=== PATIENT | female | born 2000 | race Two or more races ===

== ENCOUNTER 2023-12-29 18:41 | Inpatient (IN) | payer BC, SELFPAY ==
[2023-12-29] VITALS (12 sets, daily range): BP systolic 93–116; BP diastolic 51–70; PULSE 80–95; TEMP 36.6
[2023-12-29 19:51] LABS: Hemoglobin 11.1 g/dL (12.0-16.0); Mean Corpuscular HGB Conc 32.6 g/dL (29.9-35.2); Mean Corpuscular Hemoglobin 28.6 pg (26.7-34.0); Mean Corpuscular Volume 87.6 fL (81.0-99.0); Mean Platelet Volume 10.5 fL (9.5-13.5); Platelet Count 271 10^3/uL (150-450); Red Blood Count 3.88 10^6/uL (4.20-5.40); White Blood Count 8.6 10^3/uL (4.0-11.0)
[2023-12-29] MEDS: DINOPROSTONE 10 MG VAG INSERT.ER VAGINAL (20:04)
[2023-12-29 20:10] LABS: Amphetamine Screen Urine NEGATIVE (NEGATIVE); Barbiturates Screen Urine NEGATIVE (NEGATIVE); Benzodiazepines Screen Urine NEGATIVE (NEGATIVE); Buprenorphine Screen Urine NEGATIVE (NEGATIVE); Cannabinoid Screen Urine NEGATIVE (NEGATIVE); Cocaine Screen Urine NEGATIVE (NEGATIVE); Methadone Screen Urine NEGATIVE (NEGATIVE); Methamphetamines Screen Urine NEGATIVE (NEGATIVE); Opiate Screen Urine NEGATIVE (NEGATIVE); Oxycodone Screen Urine NEGATIVE (NEGATIVE); Phencyclidine Screen Urine NEGATIVE (NEGATIVE); Tricyclic Antidepressant Urine NEGATIVE (NEGATIVE)
[2023-12-30] VITALS (32 sets, daily range): BP systolic 91–120; BP diastolic 50–73; PULSE 73–95; TEMP 36.6–36.9
[2023-12-30] MEDS: DINOPROSTONE 10 MG VAG INSERT.ER VAGINAL (10:02)
[2023-12-30] MEDS: LACTATED RINGER'S SOLUTION 1,000 ML 125 ML IV (23:30)
[2023-12-30] MEDS: OXYTOCIN/0.9 % SODIUM CHLORIDE 10 UNITS/500 ML PLAST..BAG 3 UNIT IV (23:31)
[2023-12-31] VITALS (47 sets, daily range): BP systolic 86–129; BP diastolic 49–80; PULSE 68–99; TEMP 36.3–36.9; O2SAT 95–98
--- NOTE | 2023-12-31 07:24 | PC.NURSE ---
RN reviews and agrees with charting by Gabby Lomas RN.
--- NOTE | 2023-12-31 07:36 | PM.OBHP ---
OB - H&P: HPI History of Present Illness Chief complaint: induction : 1 Para: 0 Gestational age based on last menstrual period: 40.2 History of Present Dating criteria: LMP confirmed by 1st trimester US care: good care Ultrasounds: normal 1st trimester US and normal mid trimester US Medical complications OB: none Narrative: patient has a history of asthma, but no episodes during . Labs Blood type: O (+) positive Rubella: immune RPR/VDLR: nonreactive GBS status: negative HBsAG: negative Review of Systems ROS Status of ROS: 10 or more systems reviewed and unremarkable except as noted in history and below [facility] Medical History (Updated 12/31/23 @ 07:45 by MARTIN SIERRA APRN, LOLITA) FH: cholecystectomy ?Z83.79 - Family history of other diseases of the digestive system (ICD-10) Heart murmur ?R01.1 - Cardiac murmur, unspecified (ICD-10) Asthma ?J45.909 - Unspecified asthma, uncomplicated (ICD-10) Social History (Updated 12/29/23 @ 21:04 by Anisa Lomas RN) Within the past year, how often did you have a drink containing alcohol: never Within the past year, how often did you have six or more drinks on one occasion: never Score interpretation: A score less than 3 is consistent with normal alcohol consumption. Smoking status: Never smoker Non-prescribed substance use: denies use Meds Home Medications and Allergies Home Medications ?Medication ?Instructions ?Recorded ?Confirmed ?Type albuterol sulfate 2.5 mg/3 mL mg inhalation PRN asthma 12/29/23 History (0.083 %) solution for nebulization fluticasone furoate 100 1 inh inhalation DAILY 12/29/23 12/29/23 History mcg-vilanterol 25 mcg/dose inhalation powder (Breo Ellipta) Allergies Allergy/AdvReac Type Severity Reaction Status Date / Time No Known Drug Allergies Allergy Verified 12/29/23 20:04 Exam Constitutional Vital Signs, click to edit/add: Last Vital Signs Temp 98 F 12/31/23 03:13 Pulse 78 12/31/23 06:28 Resp 18 12/30/23 19:14 BP 101/51 12/31/23 06:28 O2 Del Method Room Air 08/12/24 05:56 Documenting provider has reviewed patient's vital signs: yes Common normals: no apparent distress and oriented x3 General appearance: cooperative Orientation/consciousness: Yes awake, Yes oriented to person, Yes oriented to place and Yes oriented to time HENMT Common normals: normocephalic Eye Common normals: EOMs intact bilaterally Neck & C-Spine Common normals: full ROM Lymph Lymphatic: no lymphadenopathy noted Respiratory Common normals: normal respiratory effort and clear to auscultation bilaterally Cardio Common normals: regular rate and regular rhythm Rate: regular rate Rhythm: regular rhythm GI Common normals: Normal to inspection, nondistended, normoactive bowel sounds present and soft to palpation Inspection: normal to inspection Auscultation: normoactive bowel sounds Palpation: soft Common normals: no CVA tenderness Back & Pelvis Common normals: no CVA tenderness Extremity Common normals: normal to inspection Neuro Common normals: oriented x3 Sensorium/orientation: awake, alert, oriented to person, oriented to place and oriented to time Psych Common normals: mental status grossly normal, thought process normal, cooperative, affect normal, speech normal, activity/motor behavior normal, denies hallucinations, denies homicidal ideation and denies suicidal ideation Attitude: calm OB - A/P Assessment and Plan (1) Term :
[2023-12-31] MEDS: LACTATED RINGER'S SOLUTION 1,000 ML 125 ML IV ×2 (08:16→14:26)
[2023-12-31] MEDS: OXYTOCIN/0.9 % SODIUM CHLORIDE 10 UNITS/500 ML PLAST..BAG 30 UNIT IV (14:26)
[2023-12-31] MEDS: PENICILLIN G POTASSIUM 5,000,000 UNIT in 0.9 % SODIUM CHLORIDE 100 ML 200 UNIT IV (19:27)
[2023-12-31] MEDS: LACTATED RINGER'S SOLUTION 1,000 ML 999 ML IV ×3 (20:23→22:25)
[2023-12-31] MEDS: METOCLOPRAMIDE HCL 10 MG/2 ML VIAL IVP (21:19)
[2023-12-31] MEDS: CITRIC ACID/SODIUM CITRATE 30 ML SOLUTION ORACIT SHOHL'S SOLN PO (21:19)
[2023-12-31] MEDS: FAMOTIDINE/PF 20 MG/2 ML VIAL IV (21:19)
--- NOTE | 2023-12-31 22:25 | PM.ONB ---
Brief Operative Note Date of procedure: 12/31/23 Pre-op diagnosis general: iup at 40+wks, failure to dilate, failure to descend Post-op diagnosis: same as pre-op Procedure: NAME OF PROCEDURE: [ section ] PROCEDURE: Patient was taken back to the Operating Room where she was given a spinal anesthesia with Duramorph without difficulty. She was prepped and draped in the normal sterile fashion. A Pfannenstiel skin incision was then made 2 cm above the symphysis pubis and carried down to underlying rectus fascia using a Bovie. The fascia was incised in the midline and extended laterally using Tavarez scissors. Two Edwardo clamps were placed on the superior aspect of the fascia and dissected off the underlying rectus muscles. The same was performed on the inferior aspect as well. The muscles were then in the midline. Peritoneum was identified and entered bluntly. The peritoneum was then extended superiorly and inferiorly with good visualization of the bladder. The bladder blade was inserted. A low transverse incision was made on the patient's uterus and extended laterally digitally. The infant was then delivered atraumatically after the bladder blade was removed in the cephalic position. The cord was clamped and cut. Cord blood was obtained. The infant was handed off to awaiting team. The patient's placenta was spontaneously delivered. The uterus was then exteriorized. The uterus was cleared of all clots and debris. The bladder blade was reinserted. The patient's uterine incision was closed using #0 Vicryl in a running lock fashion. Excellent hemostasis was assured. The uterus was then returned to the patient's abdomen. The patient's abdomen was copiously irrigated using warm saline. Peritoneal gutters were cleared of all clots and debris. Again excellent hemostasis was assured. The patient's peritoneum was closed using 3-0 Vicryl in a running fashion. The patient's fascia was closed using #0 Vicryl in a running fashion. The patient's skin was closed using 4-0 Vicryl subcuticularly. The patient tolerated the procedure well. Sponge, lap, and needle counts were correct x2. The patient was taken to the Recovery Room in stable condition. Anesthesia: spinal Surgeon: Gorge Adan Transitional Care Nurse: MARTIN SIERRA Estimated blood loss (mL): 575 Pathology: other (placenta) Condition: stable Disposition: floor Urinary Catheter Management Urinary Catheter Management Urethral: Cath placed during this visit: yes Urethral indwelling: No Insertion date: 12/31/23 Insertion time: 20:10
--- NOTE | 2023-12-31 22:28 | PM.OBPRCCS ---
Procedure Pre-op/Post-op diagnoses: Pre-Op/Post-Op Diagnoses Operation Date: 12/31/23 21:30 <No data on this case meets the specified criteria> Procedure: Procedures Operation Date: 12/31/23 21:30 Actual Procedure Side Surgeon p Not Applicable Gorge Adan DO Color Depositing Machine Tender: MARTIN SIERRA Estimated blood loss (mL): 575 Disposition: PACU Anesthesia type: Spinal
--- NOTE | 2023-12-31 22:48 | PM.EN ---
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 I first assisted Dr Adan with primary section as directed. I independently closed the SQ layer with 3-0 vicryl without difficulty and then I independently closed the incision layer with 4-0 vicryl without difficulty. hemostasis noted at completion of case. patient tolerated procedure well.
[2023-12-31] MEDS: OXYTOCIN/0.9 % SODIUM CHLORIDE 20 UNITS/1,000 ML PLAST..BAG 125 UNIT IV (23:14)
[2024-01-01] VITALS (17 sets, daily range): BP systolic 101–118; BP diastolic 54–74; PULSE 58–89; TEMP 36.4–36.8; O2SAT 96–98
--- NOTE | 2024-01-01 02:35 | PC.NURSE ---
12/31/20232202: A viable male delivered via primary csection with Dr. Adan and Candice Dotson CNM attending. bulb suctioned, dried and stimulated. Cord clamped and cut. handed to this RN by VF. 2203: Baby taken to radiant warmer; Dr. Guillen present. Heart rate 180bpm and regular. Respiratory rate 60. Lung sounds moist on auscultation. Good tone noted. 2204: Wet blankets exchanged for dry. Hat placed on infant's head. Tactile stimulation continued. lets out strong cry. 2205: Dr. Guillen performs assessment of infant. is pink with acrocyanosis present, good tone. 2207: Heart rate 140bpm and regular. Respiratory rate 50. Lung sounds clear on auscultation. [place] with acrocyanosis noted. Good tone. No signs of distress. Temperature 99.6 degrees F. 2208: Infant stable and shows no signs of distress. Placed skin to skin on moms chest.
--- NOTE | 2024-01-01 02:46 | PC.NURSE ---
This RN present during PACU recovery with Elida Stock RN. Documentation reviewed and this RN agrees with assessment. LISSETH Woodard
[2024-01-01] MEDS: ONDANSETRON PF 4 MG/2 ML VIAL IV (04:09)
[2024-01-01] MEDS: CEFAZOLIN SODIUM/DEXTROSE,ISO 2 GM/50 ML PIGGYBACK IV (04:10)
[2024-01-01] MEDS: KETOROLAC TROMETHAMINE 30 MG/ML VIAL IVP ×3 (04:50→17:34)
--- NOTE | 2024-01-01 05:08 | PC.NURSE ---
Bilateral patellar DTRs absent, patient had spinal
[2024-01-01] MEDS: ACETAMINOPHEN 500 MG TABLET 1000 MG PO ×3 (05:58→21:52)
--- NOTE | 2024-01-01 06:28 | PC.NURSE ---
All charting by Jhonny Lomas reviewed by this RN and agreed upon.
[2024-01-01] MEDS: ENOXAPARIN SODIUM 40 MG/0.4 ML SYRINGE SUBQ (10:26)
--- NOTE | 2024-01-01 13:13 | PM.OBPN ---
OB - PN: Subj Subjective Patient comments: no complaints and pain well controlled [place] status: doing well Exam Constitutional Vital Signs, click to edit/add: Last Vital Signs Temp 98.0 F 01/01/24 08:15 Pulse 68 01/01/24 12:24 Resp 20 01/01/24 04:19 BP 105/63 01/01/24 12:24 Pulse Ox 98 01/01/24 00:25 O2 Del Method Room Air 01/01/24 08:15 Documenting provider has reviewed patient's vital signs: yes Common normals: no apparent distress Respiratory Common normals: normal respiratory effort and clear to auscultation bilaterally Cardio Common normals: regular rate and regular rhythm GI Common normals: Normal to inspection, nondistended, normoactive bowel sounds present Extremity Common normals: no clubbing, cyanosis or edema and no calf tenderness Urinary Catheter Management Urinary Catheter Management Urethral: Cath placed during this visit: yes Urethral indwelling: No Insertion date: 12/31/23 Insertion time: 20:10 OB - PN: A/P Assessment and Plan (1) Term : Plan - day: 1 Plan: routine postop care Time Spent with Patient Time: Total time spent is greater than 50% in coordination of care (as documented) at patient's floor/unit and/or counseling patient: Total time spent with greater than 50% in coordination of care (as documented) at patient's floor/unit and/or counseling patient: less than 15 minutes
[2024-01-01] MEDS: DOCUSATE SODIUM 100 MG CAPSULE PO (21:52)
[2024-01-02] MEDS: ACETAMINOPHEN 500 MG TABLET 1000 MG PO (05:34)
--- NOTE | 2024-01-02 07:39 | PM.OBPN ---
OB - PN: Subj Subjective Patient comments: no complaints and pain well controlled [place] status: doing well Exam Constitutional Vital Signs, click to edit/add: Last Vital Signs Temp 98.3 F 01/01/24 22:55 Pulse 89 01/01/24 22:55 Resp 16 01/01/24 22:55 BP 102/54 01/01/24 22:55 Pulse Ox 98 01/01/24 18:20 O2 Del Method Room Air 01/01/24 23:00 Documenting provider has reviewed patient's vital signs: yes Common normals: no apparent distress Respiratory Common normals: normal respiratory effort and clear to auscultation bilaterally Cardio Common normals: regular rate and regular rhythm GI Common normals: Normal to inspection, nondistended, normoactive bowel sounds present Extremity Common normals: no calf tenderness Urinary Catheter Management Urinary Catheter Management Urethral: Cath placed during this visit: yes Urethral indwelling: No Insertion date: 12/31/23 Insertion time: 20:10 OB - PN: A/P Assessment and Plan (1) Term : Plan - day: 2 Plan: routine postop care, discharge home and other (fu 1wk) Time Spent with Patient Time: Total time spent is greater than 50% in coordination of care (as documented) at patient's floor/unit and/or counseling patient: Total time spent with greater than 50% in coordination of care (as documented) at patient's floor/unit and/or counseling patient: less than 15 minutes
[2024-01-02] MEDS: IBUPROFEN 400 MG TABLET 800 MG PO (08:23)
[2024-01-02] MEDS: DOCUSATE SODIUM 100 MG CAPSULE PO (08:23)
[2024-01-02] MEDS: ENOXAPARIN SODIUM 40 MG/0.4 ML SYRINGE SUBQ (08:24)
[2024-01-02 08:41] VITALS: BP 108/65; PULSE 77; TEMP 36.8; O2SAT 97
== END 2024-01-02 14:45 | disposition home or self-care (01) | DRG 788 ==
PROVIDERS: Obstetrics & Gynecology; Admitting Provider Midwife; Visit Provider Midwife
PROC: 10D00Z1 Extraction of Products of Conception, Low, Open Approach (ICD-10-PCS; CPT 59514; principal; 2023-12-31 21:30)
DX: O62.0 Primary inadequate contractions (principal); O32.4XX0 Maternal care for high head at term, not applicable or unspecified; Z3A.40 40 weeks gestation of pregnancy; Z37.0 Single live birth
CPT/HCPCS: 36415; 51702; 59050; 64488; 80307; 85027; 86850; 86900; 86901; 88307; 94667; 94668; 96365; 96366; 96372; 96375; 96376; J0131; J0665; J0690; J1100; J1650; J1885; J2274; J2371; J2405; J2540; J2765

== ENCOUNTER 2024-01-07 08:51 | Outpatient (OUT) | payer BC, SELFPAY ==
--- OUTSIDE RECORDS SUMMARY | 2024-01-07 09:13 | XMS_ITS | CCD ---
Author Organization [facility] Informat [facility] Care Team Providers Care Manager Pet Name Role Phone Unavailable Primary Care Provider Unavailabl e HUNG WHATLEY Referring Unavailable KALEN KENNY Primary Care Unavailable Kalen Kenny PA-C Primary Care Provider FLORO, MARTIN L Attending Unavailable FLORO, MARTIN L Referring Unavailable FLORO, MARTIN L Attending Unavailable FLORO, MARTIN L Attending Unavailable FLORO, MARTIN L Attending Unavailable FLORO, MARTIN L Referring Unavailable FLORO, MARTIN L Attending Unavailable FLORO, MARTIN L Attending Unavailable FLORO, MARTIN L Referring Unavailable FLORO, MARTIN L Attending Unavailable FLORO, MARTIN L Attending Unavailable FLORO, MARTIN L Attending Unavailable FLORO, MARTIN L Attending Unavailable FLORO, MARTIN L Attending Unavailable FLORO, MARTIN L Attending Unavailable FLORO, MARTIN L Referring Unavailable Medications Current Medications Medication Drug Class(es) Dates Sig (Normalized) Sig (Original) albuterol 0.83 mg/ml inhalation solution (4 sources) beta2-Adrenergic Agonist Start: 08-22-2023 take 3 mL by inhalation every four hours as needed for wheezing albuterol (PROVENTIL,VENTOLIN ) 2.5 mg /3 mL (0.083 %) nebulizer solution Indications: Viral URI , Mild intermittent asthma with exacerbation Inhale 3 mL (2.5 mg total) by nebulization every 4 (four) hours as needed for wheezing. 30 mL 0 08/22/2023 Active Start: 08-27-2022 take 3 mL by inhalat ion every six hours as needed for wheezing albuterol (PROVENTIL,VENTOLIN) 2.5 mg /3 mL (0.083 %) nebulizer solution Indications: Mild intermittent asthma with exacerbation Inhale 3 mL (2.5 mg total) by nebulization every 6 (six) hours as needed for wheezing. 30 mL 0 08/27/2022 Active Start: 08-27-2022 take 2.5 mg by inhal ation every six hours as needed for dyspnea albuterol (2.5 MG/3ML) 0.083% nebulizer solution Inhale 2.5 mg every 6 (six) hours if needed for shortness of breath. 0 08/27/2022 Active take 2 puff(s) by in halation every six hours as needed for wheezing albuterol (PROVENTIL HFA;VENTOLIN HFA) 90 mcg/actuation inhaler Inhale 2 puffs every 6 (six) hours as needed for wheezing. 0 Active benzonatate 100 mg oral capsule (1 source) Non-narcotic Antitussive Start: 02-11-2023 take 2 capsules by mouth three times daily as needed for cough benzonatate (TESSALON PERLES) 100 mg capsule Indications: Mild intermittent asthma without complication Take 2 capsules (200 mg total) by mouth 3 (three) times a day as needed for cough. 30 capsule 0 02/11/2023 Active cetirizine hydrochloride 1 mg/ml oral solution (2 sources) Histamine-1 Receptor Antagonist Start: 02-11-2023 take 10 mL by mouth in the morning cetirizine (ZyrTEC) 1 mg/mL syrup Take 10 mL (10 mg total) by mouth in the morning. 118 mL 0 02/11/2023 Active take 1 tablet by mouth in the mo rning cetirizine (ZyrTEC) 10 mg tablet Take 1 tablet (10 mg total) by mouth in the morning. 0 Active chlorhexidine gluconate 1.2 mg/ml mouthwash (1 source) Start: 12-14-2022 take 15 mL by mouth in the morning chlorhexidine (PERIDEX) 0.12 % solution Apply 15 mL to the mouth or throat in the morning and 15 mL before bedtime. 0 12/14/2022 Active 120 actuat fluticasone propionate 0.044 mg/actuat metered dose inhaler (1 source) Corticosteroid take 2 puff(s) by inhalation in the morning fluticasone propionate (FLOVENT HFA) 44 mcg/actuation inhaler Inhale 2 puffs in the morning and 2 puffs before bedtime. 0 Active 30 actuat fluticasone furoate 0.1 mg/actuat / vilanterol 0.025 mg/actuat dry powder inhaler (1 source) Corticosteroid, beta2-Adrenergic Agonist take 1 puff(s) by mouth once daily BREO ELLIPTA 100-25 mcg/dose blister with device inhale 1 puff by mouth and INTO THE LUNGS once daily 0 Active metFORMIN hydrochloride 500 mg oral tablet (1 source) Biguanide Start: 05-21-2023 take 1 tablet by mouth once daily at mealtime metFORMIN (Glucophage) 500 MG tablet Indications: Irregular menstrual cycle take 1 tablet by mouth every morning and every evening with meals 60 tablet 0 05/21/2023 Active Problems Active Problems Problem Classification Problem Date Documented Da te Episodic/Chronic Asthma (4 sources) Moderate persistent asthma, uncomplicated; Translations: [Exacerbation of intermittent asthma] Onset: 06-18-2019 08-22-2023 Chronic Chronic obstructive pulmonary disease and bronchiectasis (1 source) Acute exacerbation of chronic obstructive airways disease; Translations: [Chronic obstructive pulmonary disease with (acute) exacerbation] Onset: 06-18-2019 06-18-2019 Chronic Other lower respiratory disease (1 source) Cough; Translations: [Cough, unspecified type] 08-22-2023 Episodic Other upper respiratory infections (1 source) Viral upper respiratory tract infection; Translations: [Acute upper respiratory infection, unspecified] 08-22-2023 Episodic Unclassified (1 source) OB Reminders Onset: 05-22-2023 05-22-2023 Past or Other Problems Problem Classification Problem Date Documented Da te Episodic/Chronic Abdominal pain (1 source) Right upper quadrant pain; Translations: [Right upper quadrant pain] Onset: 10-03-2022 Resolved: 02-07-2023 02-07-2023 Episodic Biliary tract disease (1 source) Polyp of gallbladder; Translations: [Cholesterolosis of gallbladder] Onset: 10-03-2022 Resolved: 02-07-2023 02-07-2023 Episodic Mood disorders (1 source) Mood disorders Onset: 08-28-2022 08-28-2022 Results Test Name Value Interpretation Reference Range Facil ity US OB FOLLOW UP TRANSABDOMIN AL APPROACHon 12-26-2023 US OB FOLLOW UP TRANSABDOMINAL APPROACH TITLE OF EXAM: US - US OB FOLLOWUP PER FETUS REASON FOR EXAM: Dating TECHNIQUE: Grayscale, color, and M-mode Doppler ultrasound evaluation of the fetus and maternal pelvis. COMPARISON: None. FINDINGS: LMP: 03/22/2023 Age by LMP: 39 weeks, 6 days Estimated date of delivery by LMP: 12/27/2023 Sonographic age: 40 weeks, 2 days Single live intrauterine gestation in cephalic position. No sonographic abnormality of the evaluated structures. heart rate 145 bpm Biparietal diameter 9.8 cm, 40 weeks, 2 days Abdominal circumference 36.6 cm, 40 weeks, 3 days Head circumference 34.6 cm, 40 weeks, 1 day Femur length: 7.8 cm, 40 weeks, 0 days Estimated weight 4058 g (8 pounds, 15 ounces) 83% Right-sided placenta without evidence of previa on the provided images. Grade 2. Amniotic fluid index 13.5 cm, 58% IMPRESSION: 1. Single live intrauterine gestation, sonographically 40 weeks, 2 days. 2. No sonographic abnormality of the evaluated and maternal structures. DICTATED ON: 12/26/2023 1:45 PM This report has been electronically signed and approved by the interpreting radiologist. Electronically Signed Wallace Delgado M.D. 2023-12-26 13:49:09 Normal Not Available US OB FOLLOW UP TRANSABDOMIN AL APPROACHon 10-16-2023 US OB FOLLOW UP TRANSABDOMINAL APPROACH FINDINGS: A single, live intrauterine is present with normal cardiac rate of 176 beats per minute. Normal activity and amniotic fluid volume. Amniotic fluid index is 14 cm. Morphology is grossly normal. The cervix is long and closed, 5.3 cm. The placenta is posterior fundal, not associated with the cervical os. The current sonographic age is 30 weeks and 4 days, based on the following measurements: BPD 7.9 cm (31 weeks, 4 days) Head Circumference 28.2 cm (31 weeks, 0 days) Abdominal Circumference 25.8 cm (29 weeks, 6 days) Femur Length 5.7 cm (30 weeks, 0 days) Presentation Cephalic Placenta Posterior fundal Grade I Weight (g) by Percentile 52.8 % * These measurements result in an estimated date of delivery of December 21, 2023. The current estimated weight is 1521 grams (3 pounds, 6 ounces). IMPRESSION: Single, live intrauterine , current sonographic age of 30 weeks and 4 days, with an estimated date of delivery of December 21, 2023 * Estimated Weight (g) by Percentile is based upon an accurate estimated age based on last menstrual period. TRANSCRIBED BY: ELECTRONICALLY SIGNED BY: Tom Hernandez MD Normal Not Available POCT Influenza A/Influenza B /SARS-COV-2 VeritorOrdered By: Danielle Quiles on 08-22-2023 External Poct Influenza A Antigen Negative [facility] External Poct Influenza B Antigen Negative [facility] Interpretation and review of laboratory results Normal [facility] SARS-CoV-2 (COVID-19) Ag IA.rapid Ql (Resp) Negative [facility] CBC AND AUTO DIFFon 08-12-19 ABSOLUTE BASOPHIL 0.0 X10E9/L Normal 0.0-0.2 [facility] Comment on above: Performed By: #### C BCA #### [facility] ([id number]) [address], [address] [place] [address] ABSOLUTE NEUTROPHIL 5.7 X10E9/L Normal 1.5-6.6 [facility] Comment on above: Performed By: #### C BCA #### [facility] ([id number]) [address], [address] [place] [address] Basophils/100 WBC (Bld) 0.2 % Normal [facility] Comment on above: Performed By: #### C BCA #### [facility] ([id number]) [address], [address] [place] [address] Eosinophils (Bld) [#/Vol] 0.6 10*3/uL High 0.0-0.4 [facility] Comment on above: Performed By: #### C BCA #### [facility] ([id number]) [address], [address] [place] [address] Eosinophils/100 WBC (Bld) 6.7 % Normal [facility] Comment on above: Performed By: #### C BCA #### [facility] ([id number]) [address], [address] [place] [address] Erythrocyte distribution width (RBC) [Ratio] 14.1 % Normal 11.5-15.0 [facility] Comment on above: Performed By: #### C BCA #### [facility] ([id number]) [address], [address] [place] [address] Hematocrit (Bld) [Volume fraction] 36.2 % Normal 35-47 [facility] Comment on above: Performed By: #### C BCA #### [facility] ([id number]) [address], [address] [place] [address] Hemoglobin (Bld) [Mass/Vol] 12.3 g/dL Normal 11.7-15.5 [facility] Comment on above: Performed By: #### C BCA #### [facility] ([id number]) [address], [address] [place] [address] Lymphocytes (Bld) [#/Vol] 1.7 10*3/uL Normal 1.0-3.5 [facility] Comment on above: Performed By: #### C BCA #### [facility] ([id number]) [address], [address] [place] [address] Lymphocytes/100 WBC (Bld) 19.6 % Normal [facility] Comment on above: Performed By: #### C BCA #### [facility] ([id number]) [address], [address] [place] [address] MCH (RBC) [Entitic mass] 30.0 pg Normal 27-34 [facility] Comment on above: Performed By: #### C BCA #### [facility] ([id number]) [address], [address] [place] [address] MCHC (RBC) [Mass/Vol] 33.8 g/dL Normal 32-36 [facility] Comment on above: Performed By: #### C BCA #### [facility] ([id number]) [address], [address] [place] [address] MCV (RBC) [Entitic vol] 89 fL Normal 80-100 [facility] Comment on above: Performed By: #### C BCA #### [facility] ([id number]) [address], [address] [place] [address] Monocytes (Bld) [#/Vol] 0.6 10*3/uL Normal 0-0.9 [facility] Comment on above: Performed By: #### C BCA #### [facility] ([id number]) [address], [address] [place] [address] Monocytes/100 WBC (Bld) 7.2 % Normal [facility] Comment on above: Performed By: #### C BCA #### [facility] ([id number]) [address], [address] [place] [address] Neutrophils/100 WBC (Bld) 66.3 % Normal [facility] Comment on above: Performed By: #### C BCA #### [facility] ([id number]) [address], [address] [place] [address] Platelet mean volume (Bld) [Entitic vol] 8.4 fL Normal 7-12 [facility] Comment on above: Performed By: #### C BCA #### [facility] ([id number]) [address], [address] [place] [address] Platelets (Bld) [#/Vol] 255 10*3/uL Normal 150-450 [facility] Comment on above: Performed By: #### C BCA #### [facility] ([id number]) [address], [address] [place] [address] RBC COUNT 4.08 X10E12/L Normal 3.80-5.20 [facility] Comment on above: Performed By: #### C BCA #### [facility] ([id number]) [address], [address] [place] [address] WBC (Bld) [#/Vol] 8.5 10*3/uL Normal 4.0-11.0 [facility] Comment on above: Performed By: #### C BCA #### [facility] ([id number]) [address], [address] [place] [address] RESPIRATORY PANELon 08-12-19 24 ALTERNARIA ALTERNATA <0.10 Normal <0.10 [facility] Comment on above: Result Comment: Clas s 0: Normal Performed By: #### R AP #### [facility] ([id number]) [address] [place] [address] ASPERGILLUS FUMIGATUS 0.15 kU/L High <0.10 [facility] Comment on above: Result Comment: Clas s 0/1: Low level of Allergy, ongoing sensitization Performed By: #### R AP #### [facility] ([id number]) [address] [place] [address] BERMUDA GRASS 1.41 kU/L High <0.10 [facility] Comment on above: Result Comment: Clas s 2:Moderate level of Allergy, indicative of stronger ongoing sensitization Performed By: #### R AP #### [facility] ([id number]) [address], [address] [place] [address] BOX ELDER <0.10 Normal <0.10 [facility] Comment on above: Result Comment: Clas s 0: Normal Performed By: #### R AP #### [facility] ([id number]) [address] [place] [address] CAT DANDER 2.05 kU/L High <0.10 [facility] Comment on above: Result Comment: Clas s 2:Moderate level of Allergy, indicative of stronger ongoing sensitization Performed By: #### R AP #### [facility] ([id number]) [address], [address] [place] [address] CLADOSPORIUM HERB <0.10 Normal <0.10 [facility] Comment on above: Result Comment: Clas s 0: Normal Performed By: #### R AP #### [facility] ([id number]) [address], [address] [place] [address] COCKLEBUR 0.43 kU/L High <0.10 [facility] Comment on above: Result Comment: Clas s 1:Low level of Allergy, indicative of ongoing sensitization Performed By: #### R AP #### [facility] ([id number]) [address] [place] [address] COCKROACH <0.10 Normal <0.10 [facility] Comment on above: Result Comment: Clas s 0: Normal Performed By: #### R AP #### [facility] ([id number]) [address], [address] [place] [address] COMMON PIGWEED <0.10 Normal <0.10 [facility] Comment on above: Result Comment: Clas s 0: Normal Performed By: #### R AP #### [facility] ([id number]) [address], [address] [place] [address] COMMON RAGWEED 5.31 kU/L High <0.10 [facility] Comment on above: Result Comment: Clas s 3:High level of Allergy, indicative of high level sensitization Performed By: #### R AP #### [facility] ([id number]) [address], [address] [place] [address] COMMON SILVER BIRCH 0.23 kU/L High <0.10 [facility] Comment on above: Result Comment: Clas s 0/1: Low level of Allergy, ongoing sensitization Performed By: #### R AP #### [facility] [facility] ([id number]) [address] [place] [address] COTTONWOOD 0.10 kU/L High <0.10 [facility] Comment on above: Result Comment: Clas s 0/1: Low level of Allergy, ongoing sensitization Performed By: #### R AP #### [facility] ([id number]) [address] [place] [address] DERMATOPH FARINAE 7.22 kU/L High <0.10 [facility] Comment on above: Result Comment: Clas s 3:High level of Allergy, indicative of high level sensitization Performed By: #### R AP #### [facility] ([id number]) [address] [place] [address] DERMATOPH PTERONYSS 13.30 kU/L High <0.10 [facility] Comment on above: Result Comment: Clas s 3:High level of Allergy, indicative of high level sensitization Performed By: #### R AP #### [facility] ([id number]) [address] [place] [address] DOG DANDER 4.70 kU/L High <0.10 [facility] Comment on above: Result Comment: Clas s 3:High level of Allergy, indicative of high level sensitization Performed By: #### R AP #### [facility] ([id number]) [address] [place] [address] ELM 0.10 kU/L High <0.10 [facility] Comment on above: Result Comment: Clas s 0/1: Low level of Allergy, ongoing sensitization Performed By: #### R AP #### [facility] ([id number]) [address], [address] [place] [address] GOOSEFOOT WALLACE QTR <0.10 Normal <0.10 [facility] Comment on above: Result Comment: Clas s 0: Normal Performed By: #### R AP #### [facility] ([id number]) [address], [address] [place] [address] IGE 287 IU/mL High 0-165 [facility] Comment on above: Performed By: #### R AP #### [facility] ([id number]) [address], [address] [place] [address] JHON GRASS 1.55 kU/L High <0.10 [facility] Comment on above: Result Comment: Clas s 2:Moderate level of Allergy, indicative of stronger ongoing sensitization Performed By: #### R AP #### [facility] ([id number]) [address] [place] [address] MAPLE LEAF SYCAMORE <0.10 Normal <0.10 [facility] Comment on above: Result Comment: Clas s 0: Normal Performed By: #### R AP #### [facility] ([id number]) [address] [place] [address] MEADOW GRASS [place] LUIZ 8.15 kU/L High <0.10 [facility] Comment on above: Result Comment: Clas s 3:High level of Allergy, indicative of high level sensitization Performed By: #### R AP #### [facility] ([id number]) [address] [place] [address] MOUNTAIN JUNIPER <0.10 Normal <0.10 [facility] Comment on above: Result Comment: Clas s 0: Normal Performed By: #### R AP #### [facility] ([id number]) [address], [address] [place] [address] MOUSE URINE PROTEINS 1.07 kU/L High <0.10 [facility] Comment on above: Result Comment: Clas s 2:Moderate level of Allergy, indicative of stronger ongoing sensitization Performed By: #### R AP #### [facility] ([id number]) [address] [place] [address] MUGWORT 0.84 kU/L High <0.10 [facility] Comment on above: Result Comment: Clas s 2:Moderate level of Allergy, indicative of stronger ongoing sensitization Performed By: #### R AP #### [facility] ([id number]) [address] [place] [address] MULBERRY TREE <0.10 Normal <0.10 [facility] Comment on above: Result Comment: Clas s 0: Normal Performed By: #### R AP #### [facility] ([id number]) [address] [place] [address] NETTLE <0.10 Normal <0.10 [facility] Comment on above: Result Comment: Clas s 0: Normal Performed By: #### R AP #### [facility] ([id number]) [address] [place] [address] OAK 1.50 kU/L High <0.10 [facility] Comment on above: Result Comment: Clas s 2:Moderate level of Allergy, indicative of stronger ongoing sensitization Performed By: #### R AP #### [facility] ([id number]) [address] [place] [address] PECAN HICKORY TREE <0.10 Normal <0.10 [facility] Comment on above: Result Comment: Clas s 0: Normal Performed By: #### R AP #### [facility] ([id number]) [address], [address] [place] [address] PENICILLIUM CHRYSOGENUM <0.10 Normal <0.10 [facility] Comment on above: Result Comment: Clas s 0: Normal Performed By: #### R AP #### [facility] ([id number]) [address], [address] [place] [address] ROUGH MARSHELDER 0.20 kU/L High <0.10 [facility] Comment on above: Result Comment: Clas s 0/1: Low level of Allergy, ongoing sensitization Performed By: #### R AP #### [facility] ([id number]) [address] [place] [address] SALTWORT NORMA THISTLE <0.10 Normal <0.10 [facility] Comment on above: Result Comment: Clas s 0: Normal Performed By: #### R AP #### [facility] ([id number]) [address] [place] [address] SHEEP SORREL <0.10 Normal <0.10 [facility] Comment on above: Result Comment: Clas s 0: Normal Performed By: #### R AP #### [facility] ([id number]) [address] [place] [address] LIZZ 5.41 kU/L High <0.10 [facility] Comment on above: Result Comment: Clas s 3:High level of Allergy, indicative of high level sensitization Performed By: #### R AP #### [facility] ([id number]) [address] [place] [address] WALNUT TREE POLLEN <0.10 Normal <0.10 [facility] Comment on above: Result Comment: Clas s 0: Normal Performed By: #### R AP #### [facility] ([id number]) [address] [place] [address] WHITE LIA 0.10 kU/L High <0.10 [facility] Comment on above: Result Comment: Clas s 0/1: Low level of Allergy, ongoing sensitization Performed By: #### R AP #### [facility] ([id number]) [address] [place] [address] US OB 14+ WEEKS ANATOMY SCAN on 08-05-2023 US OB 14+ WEEKS ANATOMY SCAN HISTORY: Anatomy scan. COMPARISON: 05/16/2023. TECHNIQUE: Sonography of the pelvis was performed by transabdominal technique. Images were obtained and stored in a permanent archive. RESULT: Gestation: Single present. Position: Cephalic Placenta: Location: Posterior, maternal right Grade: 0 Previa: absent Cervix: Closed measuring 3.9 cm in length. Cardiac activity: 163 bpm BPD: 4.7 cm HC: 17.1 cm AC: 14.4 cm FL: 3.2 cm Amniotic fluid: 13 cm, 38th percentile Estimated weight (EFW): 313 g, 65th percentile Estimated gestational age: 19 weeks 6 days estimated gestational age by composite. Anatomy: Normal appearance of the visualized lateral ventricles, cerebellum, cisterna magna, orbits, four-chamber heart, LVOT, RVOT, stomach, kidneys, cord insertion, three-vessel cord, bladder, long bones, diaphragm, spine, somatic movement. IMPRESSION: Single, live intrauterine with estimated 19 weeks 6 days Gestational age. No anomalies visualized. ELECTRONICALLY SIGNED BY: Candelario Salazar MD Normal Not Available US OB < 14 WEEKS EARLYon US OB < 14 WEEKS EARLY FINDINGS: Well-defined gestational sac and decidual reaction containing yolk sac, and single live intrauterine . heart rate 165 bpm. [place]-rump length 1.80 cm yielding estimated sonographic gestational age of 8 weeks, 2 days. Gestational age by dates 7 weeks, 6 days. 1.9 x 1.9 x 1.8 cm cystic area identified within the subchorionic region. Sonographic estimated date of delivery December 24, 2023. Right ovary measures 8.9 x 7.1 x 6.5 cm, and is normal in size and shape. Ovary contains a 2.0 x 1.8 x 1.9 cm cyst. Left ovary not visualized secondary to overlying bowel gas. No free fluid. No adnexal masses. IMPRESSION: Impression: Single live intrauterine with estimated sonographic gestational age 8 weeks, 2 days. 1.9 x 1.9 x 1.8 cm subchorionic hemorrhage. Right corpus luteal cyst. Left ovary not visualized. ELECTRONICALLY SIGNED BY: Santhosh Walsh MD Normal Not Available Vital Signs Date Time Vital Sign Value Performing Clinician Faci rashida 08-22-2023 14:25-0400 Body height 170.2 cm Marci Wilson SOCIOLOGY RESEARCH ASSISTANT-ENVIRONMENTAL ENGINEERING AIDE Work Phone: [facility] 08-22-2023 14:25-0400 Body mass index (BMI) [Ratio] 32.11 kg/m2 Marcijaleel Wilson SOCIOLOGY RESEARCH ASSISTANT-ENVIRONMENTAL ENGINEERING AIDE Work Phone: [facility] 08-22-2023 14:25-0400 Body temperature 99.7 [degF] Marcijaleel Wilson SOCIOLOGY RESEARCH ASSISTANT-ENVIRONMENTAL ENGINEERING AIDE Work Phone: [facility] 08-22-2023 14:25-0400 Body weight 92.99 kg Marcijaleel Wilson SOCIOLOGY RESEARCH ASSISTANT-ENVIRONMENTAL ENGINEERING AIDE Work Phone: [facility] 08-22-2023 14:25-0400 Diastolic blood pressure 69 mm[Hg] Marcijaleel Wilson SOCIOLOGY RESEARCH ASSISTANT-ENVIRONMENTAL ENGINEERING AIDE Work Phone: [facility] 08-22-2023 14:25-0400 Heart rate 94 /min Marcijaleel Wilson SOCIOLOGY RESEARCH ASSISTANT-ENVIRONMENTAL ENGINEERING AIDE Work Phone: [facility] 08-22-2023 14:25-0400 Respiratory rate 16 /min Marcijaleel Wilson SOCIOLOGY RESEARCH ASSISTANT-ENVIRONMENTAL ENGINEERING AIDE Work Phone: [facility] 08-22-2023 14:25-0400 SaO2% (BldA) [Mass fraction] 100 % Marcijaleel Wilson SOCIOLOGY RESEARCH ASSISTANT-ENVIRONMENTAL ENGINEERING AIDE Work Phone: [facility] 08-22-2023 14:25-0400 Systolic blood pressure 130 mm[Hg] Marcijaleel Wilson SOCIOLOGY RESEARCH ASSISTANT-ENVIRONMENTAL ENGINEERING AIDE Work Phone: [facility] Encounters Encounter Date Encounter Type Care Provider Facility Start: 12-26-2023 End: 12-26-2023 ambulatory MARTIN L FLORO Not Available Start: 12-19-2023 End: 12-19-2023 ambulatory MARTIN L FLORO Not Available Start: 12-10-2023 End: 12-10-2023 ambulatory MARTIN L FLORO Not Available Start: 12-03-2023 End: 12-03-2023 ambulatory MARTIN L FLORO Not Available Start: 11-19-2023 End: 11-19-2023 ambulatory MARTIN L FLORO Not Available Start: 10-31-2023 End: 10-31-2023 ambulatory MARTIN L FLORO Not Available Start: 10-16-2023 End: 10-16-2023 ambulatory MARTIN L FLORO Not Available Start: 09-05-2023 End: 09-05-2023 ambulatory MARTIN L FLORO Not Available Start: 08-22-2023 End: 08-22-2023 Office outpatient visit 15 minutes Marci MORALES Work Phone: [facility] Comment on above: Viral URI (Primary D x); Cough, unspecified type; Mild intermittent asthma with exacerbation Start: 08-12-2023 End: 08-13-2023 ambulatory [facility] Start: 08-05-2023 End: 08-05-2023 ambulatory MARTIN L FLORO Not Available Start: 07-08-2023 End: 07-08-2023 ambulatory MARTIN L FLORO Not Available Start: 07-04-2023 Telephone encounter Martin L Floro CN Work Phone: [facility] Start: 06-13-2023 End: 06-13-2023 ambulatory MARTIN L FLORO Not Available Start: 05-16-2023 End: 05-16-2023 ambulatory MARTIN L FLORO Not Available Procedures Date Procedure Procedure Detail Performing Clinician Start: 08-22-2023 POCT INFLUENZA A/INFLUENZA B/SARS-COV-2 VERITOR Marci Wilson APRN-ENVIRONMENTAL ENGINEERING AIDE Work Phone: Start: 08-28-2022 Adult depression screening assessment Marci Wilson APRN-ENVIRONMENTAL ENGINEERING AIDE Work Phone: Plan of Treatment Date Care Activity Detail Author Start: 08-21-2024 Adult BMI Screening Adult BMI Screen ing [facility] Start: 08-21-2024 Tobacco Screening Tobacco Screening [facility] Start: 01-19-2024 Influenza vaccination Influenza Vacc ine [facility] Start: 08-29-2023 Depression Screening Depression Scre ening [facility] Start: 07-08-2023 End: 07-08-2023 Patient encounter procedure 07/08/2023 3:30 PM EST Routine [facility] [address] [place] [address] Martin Dotson CNM [address] [place] [address] [facility] Start: 01-18-2023 COVID-19 Vaccine ( season) COVID-19 Vaccine ( season) [facility] Start: 01-18-2023 Influenza vaccination Influenza Vacc ine (#1) [facility] Start: 04-07-2019 DTaP,Tdap and Td Vaccines (7 - Td or Tdap) DTaP,Tdap and Td Vaccines (7 - Td or Tdap) [facility] Start: 2019 Screening for malign ant neoplasm of cervix Pap Smear [facility] Start: 01-04-2016 Adult BMI Follow Up Plan Adult BMI Follow Up Plan [facility] Immunizations Immunization Date Immunization Notes Care Provider Fa cility 08-26-2015 meningococcal oligosaccharide (groups A, C, Y and W-135) diphtheria toxoid conjugate vaccine (MCV4O) Marci Wilson SOCIOLOGY RESEARCH ASSISTANT-ENVIRONMENTAL ENGINEERING AIDE Work Phone: [facility] 08-18-2013 Human Papillomavirus 9-valent vaccine Marci Steve SOCIOLOGY RESEARCH ASSISTANT-ENVIRONMENTAL ENGINEERING AIDE Work Phone: [facility] 02-06-2012 influenza, seasonal, injectable, preservative free Marci Steve SOCIOLOGY RESEARCH ASSISTANT-ENVIRONMENTAL ENGINEERING AIDE Work Phone: [facility] 02-06-2012 influenza virus vacc ine, unspecified formulation Martin Dotson [facility] Work Phone: [facility] 07-24-2010 human papilloma viru s vaccine, quadrivalent Marci Steve SOCIOLOGY RESEARCH ASSISTANT-ENVIRONMENTAL ENGINEERING AIDE Work Phone: [facility] 04-10-2010 influenza, seasonal, injectable, preservative free Marci Steve SOCIOLOGY RESEARCH ASSISTANT-ENVIRONMENTAL ENGINEERING AIDE Work Phone: [facility] 04-07-2009 hepatitis A vaccine, pediatric/adolescent dosage, 2 dose schedule Marci Wilson APRN-ENVIRONMENTAL ENGINEERING AIDE Work Phone: [facility] 04-07-2009 human papilloma viru s vaccine, quadrivalent Marci Wilson APRN-ENVIRONMENTAL ENGINEERING AIDE Work Phone: [facility] 04-07-2009 meningococcal polysaccharide (groups A, C, Y and W-135) diphtheria toxoid conjugate vaccine (MCV4P) Marci Wilson APRN-[facility] Work Phone: [facility] 04-07-2009 tetanus toxoid, redu sepideh diphtheria toxoid, and acellular pertussis vaccine, adsorbed Marcijaleel Wilson [facility] Work Phone: [facility] 07-11-2007 hepatitis A vaccine, pediatric/adolescent dosage, 2 dose schedule Marci Wilson APRNCoineyENVIRONMENTAL ENGINEERING AIDE Work Phone: [facility] 04-05-2006 influenza, seasonal, injectable Marci Wilson [facility] Work Phone: [facility] 12-10-2002 diphtheria, tetanus toxoids and acellular pertussis vaccine, unspecified formulation Marci Wilson APRN-[facility] [employer] Work Phone: [facility] 12-10-2002 measles, mumps and rubella virus vaccine Marci Wilson APRN-[facility] [employer] Work Phone: [facility] 12-10-2002 poliovirus vaccine, inactivated Marci Wilson [facility] Work Phone: [facility] 01-06-1999 diphtheria, tetanus toxoids and acellular pertussis vaccine, unspecified formulation Marci Wilson APRN-[facility] Work Phone: [facility] 01-06-1999 haemophilus influenz ae type b vaccine, conjugate unspecified formulation Marci Wilson APRN-[facility] Work Phone: [facility] 01-06-1999 measles, mumps and rubella virus vaccine Marci Steve CULVERNCoineyENVIRONMENTAL ENGINEERING AIDE Work Phone: [facility] 01-06-1999 varicella virus vaccine Marci Wilson SOCIOLOGY RESEARCH ASSISTANT-ENVIRONMENTAL ENGINEERING AIDE Work Phone: [facility] 1998 hepatitis B vaccine, pediatric or pediatric/adolescent dosage Marci Wilson SOCIOLOGY RESEARCH ASSISTANT-ENVIRONMENTAL ENGINEERING AIDE Work Phone: [facility] 1998 diphtheria, tetanus toxoids and acellular pertussis vaccine, unspecified formulation Marci Steve SOCIOLOGY RESEARCH ASSISTANT-ENVIRONMENTAL ENGINEERING AIDE Work Phone: [facility] 1998 haemophilus influenz ae type b vaccine, conjugate unspecified formulation Marci Steve SOCIOLOGY RESEARCH ASSISTANT-ENVIRONMENTAL ENGINEERING AIDE Work Phone: [facility] 1998 poliovirus vaccine, unspecified formulation Marci Steve SOCIOLOGY RESEARCH ASSISTANT-ENVIRONMENTAL ENGINEERING AIDE Work Phone: [facility] 1998 diphtheria, tetanus toxoids and acellular pertussis vaccine, unspecified formulation Marci Steve SOCIOLOGY RESEARCH ASSISTANT-ENVIRONMENTAL ENGINEERING AIDE Work Phone: [facility] 1998 haemophilus influenz ae type b vaccine, conjugate unspecified formulation Marci Steve SOCIOLOGY RESEARCH ASSISTANT-ENVIRONMENTAL ENGINEERING AIDE Work Phone: [facility] 1998 poliovirus vaccine, unspecified formulation Marci Steve SOCIOLOGY RESEARCH ASSISTANT-ENVIRONMENTAL ENGINEERING AIDE Work Phone: [facility] 1998 diphtheria, tetanus toxoids and acellular pertussis vaccine, unspecified formulation Marci Wilson SOCIOLOGY RESEARCH ASSISTANT-ENVIRONMENTAL ENGINEERING AIDE Work Phone: [facility] 1998 haemophilus influenz ae type b vaccine, conjugate unspecified formulation Marci Steve SOCIOLOGY RESEARCH ASSISTANT-ENVIRONMENTAL ENGINEERING AIDE Work Phone: [facility] 1998 hepatitis B vaccine, pediatric or pediatric/adolescent dosage Marci Steve SOCIOLOGY RESEARCH ASSISTANT-ENVIRONMENTAL ENGINEERING AIDE Work Phone: [facility] 1998 poliovirus vaccine, unspecified formulation Marci Steve SOCIOLOGY RESEARCH ASSISTANT-ENVIRONMENTAL ENGINEERING AIDE Work Phone: [facility] 1998 hepatitis B vaccine, pediatric or pediatric/adolescent dosage Marci Steve SOCIOLOGY RESEARCH ASSISTANT-ENVIRONMENTAL ENGINEERING AIDE Work Phone: [facility] Payers Date Payer Category Payer Unknown [id number] 2022 Unknown [id number] 1998 Unknown [id number] [id number] 1998 Unknown [id number] 2.16.84 [id number] 1998 Unknown [id number] 2.16.84 [id number] 1998 Unknown [id number] 2.16.84 [id number] 1998 Unknown [id number] 2.16.84 [id number] 1998 Unknown [id number] 2.16.84 [id number] 1998 Unknown [id number] 2.16.84 0.1.174976.3.579.2.1259 1998 Unknown [id number] 2.16.84 [id number] 1998 Unknown [id number] 2.16.84 0.1.998112.3.579.2.1259 1998 Unknown [id number] 2.16.84 0.1.199975.3.579.2.1259 1998 Unknown [id number] 2.16.84 0.1.199458.3.579.2.9 1998 Unknown [id number] 2.16.84 0.1.173453.3.579.2.1259 1998 Unknown [id number] 2.16.84 [id number] 1998 Unknown [id number] 2.16.84 [id number] 1998 Unknown [id number] 2.16.84 [id number] 1998 Unknown [id number] 2.16.840 .[id number] 1998 Unknown [id number] 2.16.840 .[id number] Social History Date Type Detail Facility Start: 08-16-2022 End: 03-04-2023 Tobacco smoking status NHIS Never smoked tobacco [facility] Start: 08-16-2022 End: 03-04-2023 Tobacco use and exposure Smokeless tobacco non-user [facility] Start: 05-16-2023 End: 08-22-2023 Alcohol intake Ex-drinker (finding) [facility] Start: 06-29-2020 End: 05-16-2023 History of Social function [facility] Start: 06-29-2020 End: 05-16-2023 Tobacco use panel [facility] Start: 04-05-2023 [facility] Start: 1998 Sex Assigned At Female [facility] Start: 03-04-2023 Gender identity Identifies as female gender (finding) [facility] Frequency of Alcohol Consumption Never [facility] Start: 2000 Sex Assigned At Not on file P [facility] Goals Date Patient Goal Desired Activity /State Personal health goal Personal health goal Comment on above: Formatting of this n ote might be different from the original. Evaluation of progress towards goal: home w History of Present illness Narrative 08-22-2023 Marci Wilson APRN-SHANIKA - 08/22/2023 2:20 PM EDT Note Date & Type Note Facility 08-22-2023 History of Present illness Narrative Subjective: Patient ID: Sara Mackenzie is a 23 y.o. female. Chief Complaint Patient presents with URI Sinus, congestion, cough and some shortness of breath that began 4 days. Pt is 22 weeks Patient presents with 4 day history of runny/stuffy nose, cough, shortness of breath, sinus pressure. Sore throat this morning (likely PND). Denies fever, chills, headache/body aches, n/v/d. Denies known exposure to strep, flu, covid. Has been taking Sudafed, Benadryl with no improvement. Patient is currently 22 weeks , follows with Candice Dotson with [facility]. Denies complications with so far. Denies abd cramping, vaginal bleeding, leaking of fluids. Has a history of asthma and out of albuterol for nebulizer. Follows with Pulm. The following portions of the patient's history were reviewed and updated as appropriate: allergies, current medications, past family history, past medical history, past social history, past surgical history and problem list. Review of Systems Constitutional: Negative for chills and fever. HENT: Positive for congestion, postnasal drip, rhinorrhea, sinus pressure and sore throat. Respiratory: Positive for cough and shortness of breath. Past Medical History: Diagnosis Date Abscessed tooth has been on antibiotic for 7 days now, has 2 crowns Allergic rhinitis pollen , mold, cat dander, dust mites Asthma allergen induced- went to ER in 08/2022 for asthma attack Gallbladder polyp here for workup for pending davinci cholecystectomy Heart murmur Mild intermittent asthma with exacerbation 08/27/2022 Visual impairment wear glasses Past Surgical History: Procedure Laterality Date DAVINCI CHOLECYSTECTOMY CHOLANGIOGRAM N/A 01/25/2023 Performed by Sherley Alcazar MD at [facility] Social History Tobacco Use Smoking status: Never Smokeless tobacco: Never Vaping Use Vaping Use: Never used Substance Use Topics Alcohol use: Not Currently Drug use: Never Family History Problem Relation Age of Onset Hypertension Mother Arthritis Mother Diabetes Father No Known Allergies Current Outpatient Medications on File Prior to Visit Medication Sig Dispense Refill albuterol (PROVENTIL HFA;VENTOLIN HFA) 90 mcg/actuation inhaler Inhale 2 puffs every 6 (six) hours as needed for wheezing. albuterol (PROVENTIL,VENTOLIN) 2.5 mg /3 mL (0.083 %) nebulizer solution Inhale 3 mL (2.5 mg total) by nebulization every 6 (six) hours as needed for wheezing. 30 mL 0 BREO ELLIPTA 100-25 mcg/dose blister with device inhale 1 puff by mouth and INTO THE LUNGS once daily fluticasone propionate (FLOVENT HFA) 44 mcg/actuation inhaler Inhale 2 puffs in the morning and 2 puffs before bedtime. benzonatate (TESSALON PERLES) 100 mg capsule Take 2 capsules (200 mg total) by mouth 3 (three) times a day as needed for cough. 30 capsule 0 cetirizine (ZyrTEC) 1 mg/mL syrup Take 10 mL (10 mg total) by mouth in the morning. 118 mL 0 cetirizine (ZyrTEC) 10 mg tablet Take 1 tablet (10 mg total) by mouth in the morning. (Patient not taking: Reported on 02/11/2023) chlorhexidine (PERIDEX) 0.12 % solution Apply 15 mL to the mouth or throat in the morning and 15 mL before bedtime. (Patient not taking: Reported on 02/11/2023) No current facility-administered medications on file prior to visit. Objective: Vitals: 08/22/23 1425 BP: 130/69 Pulse: 94 Resp: 16 Temp: 37.6 C (99.7 F) TempSrc: Temporal SpO2: 100% Weight: 93 kg (205 lb) Height: 170.2 cm (5' 7 ) Patient's last menstrual period was 01/26/2023 (exact date). The patient was not asked if she was . Body mass index is 32.11 kg/m . Facility age limit for growth %dread is 20 years. Physical Exam Vitals and nursing note reviewed. Constitutional: General: She is not in acute distress. Appearance: Normal appearance. She is not ill-appearing. HENT: Head: Normocephalic and atraumatic. Right Ear: Tympanic membrane, ear canal and external ear normal. Left Ear: Tympanic membrane, ear canal and external ear normal. Nose: Nose normal. Mouth/Throat: Mouth: Mucous membranes are moist. Pharynx: No oropharyngeal exudate or posterior oropharyngeal erythema. Eyes: General: Right eye: No discharge. Left eye: No discharge. Cardiovascular: Rate and Rhythm: Normal rate and regular rhythm. Pulses: Normal pulses. Heart sounds: Normal heart sounds. Pulmonary: Effort: Pulmonary effort is normal. Breath sounds: Normal breath sounds. Abdominal: Comments: Gravid Musculoskeletal: Cervical back: Normal range of motion and neck supple. Skin: General: Skin is warm and dry. Capillary Refill: Capillary refill takes less than 2 seconds. Neurological: General: No focal deficit present. Mental Status: She is alert and oriented to person, place, and time. Assessment/Plan: No indication for antibiotic therapy on physical exam. Rapid COVID, Influenza A/B negative. No adventitious lung sounds concerning for pneumonia. No abnormal vital signs concerning for PE, however this can not be evaluated in the urgent care setting. Discussed cukj-bnc-fjvvimi/supportive care (See AVS), when to go to the ER. Advised to contact OB and swimming coach or instructor for further evaluation. Follow-up with Primary Care Physician if no improvement or worsening of symptoms. Labs for this visit: Office Visit on 08/22/2023 Component Date Value External Poct Influenza * 08/22/2023 Negative External Poct Influenza * 08/22/2023 Negative External POCT SARS COV 2* 08/22/2023 Presumptive Negative Sara was seen today for uri. Diagnoses and all orders for this visit: Viral URI - albuterol (PROVENTIL,VENTOLIN) 2.5 mg /3 mL (0.083 %) nebulizer solution; Inhale 3 mL (2.5 mg total) by nebulization every 4 (four) hours as needed for wheezing. Cough, unspecified type - POCT Influenza A/Influenza B/SARS-COV-2 Veritor Mild intermittent asthma with exacerbation - albuterol (PROVENTIL,VENTOLIN) 2.5 mg /3 mL (0.083 %) nebulizer solution; Inhale 3 mL (2.5 mg total) by nebulization every 4 (four) hours as needed for wheezing. Orders Placed or Reconciled This Encounter Medications BREO ELLIPTA 100-25 mcg/dose blister with device Sig: inhale 1 puff by mouth and INTO THE LUNGS once daily albuterol (PROVENTIL,VENTOLIN) 2.5 mg /3 mL (0.083 %) nebulizer solution Sig: Inhale 3 mL (2.5 mg total) by nebulization every 4 (four) hours as needed for wheezing. Dispense: 30 mL Refill: 0 Patient Instructions Differentials include: viral URI, allergies, post nasal drip, medication side effect, bacterial upper respiratory infection, Bronchitis (viral), influenza, Covid-19 infection. Counseled on Viral vs bacterial infections. At this point We will symptom manage for a viral infection. Rest, Hydration, humidification. Stay away from crowded places. Tylenol for comfort. Cough and deep breathing exercises. Saline nasal sprays and salt water gargles (Mix 1/2 teaspoon salt with a cup of warm water). Throat losenges or OTC cough syrups. If you have high blood pressure: only use Coricidin HBP for symptoms,avoiding decongestants. Discard tooth brush when symptoms are gone. Wash your hands often with soap and water for at least 15 seconds, especially after coughing or sneezing. Alcohol-based hand sanitizers also work to kill the viruses and bacteria. Clean commonly handled things like door handles, remotes, toys, and phones. Wipe them with a disinfectant. Discussed following up with PCP if symptoms are not improving in 5-7 days. To report to the ER If red flag symptoms occur, (Throwing up and can't keep liquids down, Breathing very fast, more than 40 breaths in 1 minute, Trouble breathing while lying down flat on your back,Your fingertips or lips are starting to turn bluish) as discussed in office. Patient/caregiver verbalizes understanding and agrees with plan of care. This note is dictated with the use of M*Modal.Please note that this dictation was completed with computer voice recognition software. Quite often unanticipated grammatical, syntax, homophones, and other interpretive errors are inadvertently transcribed by the computer software. Please disregard these errors. Please excuse any errors that have escaped final proofreading. I personally discussed test results with patient/parent. Education handout and discharge papers given. Paperwork explained. Denies questions or concerns. Discussed that follow up care is usually required after a visit to the Urgent care. It is your responsibility to contact your primary care provider for follow up. If symptoms are not improving, worsening, or concerning symptoms of illness develop, follow up with your primary care provider or go to the nearest Emergency Department for further care immediately. ANDREW Wynn 08/22/23 1513 documented in this encounter [facility] Instructions 08-22-2023 Patient InstructionsAttachments Note Date & Type Note Facility 08-22-2023 Instructions ANDREW Wynn - 08/22/2023 2:20 PM EDT Differentials include: viral URI, allergies, post nasal drip, medication side effect, bacterial upper respiratory infection, Bronchitis (viral), influenza, Covid-19 infection. Counseled on Viral vs bacterial infections. At this point We will symptom manage for a viral infection. Rest, Hydration, humidification. Stay away from crowded places. Tylenol for comfort. Cough and deep breathing exercises. Saline nasal sprays and salt water gargles (Mix 1/2 teaspoon salt with a cup of warm water). Throat losenges or OTC cough syrups. If you have high blood pressure: only use Coricidin HBP for symptoms,avoiding decongestants. Discard tooth brush when symptoms are gone. Wash your hands often with soap and water for at least 15 seconds, especially after coughing or sneezing. Alcohol-based hand sanitizers also work to kill the viruses and bacteria. Clean commonly handled things like door handles, remotes, toys, and phones. Wipe them with a disinfectant. Discussed following up with PCP if symptoms are not improving in 5-7 days. To report to the ER If red flag symptoms occur, (Throwing up and can't keep liquids down, Breathing very fast, more than 40 breaths in 1 minute, Trouble breathing while lying down flat on your back,Your fingertips or lips are starting to turn bluish) as discussed in office. Patient/caregiver verbalizes understanding and agrees with plan of care. The following attachments cannot be sent through Care Everywhere.Viral Upper Respiratory Infection Discharge Instructions, Adult (Latvian)documented in this encounter [facility] Telephone encounter Note 07-04-2023 Telephone Encounter - Dee Porter - 07/04/2023 3:02 PM EST Note Date & Type Note Facility 07-04-2023 Telephone encount er Note Patient called lvm @ 12:59pm saying her family physician prescribed her 2 medications he told her to contact [facility] to make sure it would be safe for her to take this medication. Pt would like a call back from [facility]'s nurse. Thank you [facility] Note 07-04-2023 Telephone Encounter - Dee Porter - 07/04/2023 3:02 PM EST Note Date & Type Note Facility 07-04-2023 Miscellaneous Notes Formattin g of this note might be different from the original. Patient called lvm @ 12:59pm saying her family physician prescribed her 2 medications he told her to contact [facility] to make sure it would be safe for her to take this medication. Pt would like a call back from [facility]'s nurse. Thank you documented in this encounter [facility] Evaluation note Note Date & Type Note Facility Evaluation note Diagnosis Viral URI- Primary Acute upper respiratory infections of unspecified site Cough, unspecified type Mild intermittent asthma with exacerbation Unspecified asthma, with exacerbation documented in this encounter [facility] Summary Purpose Family History No Family History Records FoundNo Family History Records Found Advance Directives No Advanced Directives Records FoundLatest Code Status on File Code Status Date Activated Date Inactivated Comments Full Code 08/28/2022 2:32 AM 08/28/2022 8:23 PM Code Status History Code Status Date Activated Date Inactivated Comments Full Code 06/18/2019 2:01 AM 06/27/2019 5:57 PM Additional Source Comments INFORMATION SOURCE (unrecogn ized section and content) DATE CREATED AUTHOR 08/14/2023 [facility] DATE CREATED AUTHOR AUTHOR'S ORGANIZ ATION 12/31/2023 [facility] Reason for Visit (unrecogniz ed section and content) Reason Comments URI Sinus, congestion, c ough and some shortness of breath that began 4 days. Pt is 22 weeks Care Teams (unrecognized sec tion and content) Manager [employer] Relationship Specialty Start Date End Date Kalen Kenny PA-C [id number] [place] [address] PCP - General Physician [employer] 08/16/22 FOR RECORDS PERTAINING TO PATIENTS WHO ARE OR HAVE BEEN ENROLLED IN A CHEMICAL DEPENDENCY/SUBSTANCEABUSE PROGRAM, SOME INFORMATION MAY BE OMITTED. This clinical summary was aggregated from multiple sources. Caution should be exercised in using it in the provision of clinical care. This summary normalizes information from multiple sources, and as a consequence, information in this document may materially change the coding, format and clinical context of patient data. In addition, data may be omitted in some cases. CLINICAL DECISIONS SHOULD BE BASED ON THE PRIMARY CLINICAL RECORDS. [facility]. provides no warranty or guarantee of the accuracy or completeness of information in this document.
--- NOTE | 2024-01-07 12:29 | PC.NURSE ---
Malachi Ruiz and 7 day old Bruce arrive for follow up. Mom is doing well except for breast feeding. is now using a hand pump to collect milk because latching difficulties. Pt states on day 3 baby wanted to nurse continuously. Baby then stopped latching next morning and was advised to pump and feed baby. Now mom having problems with latching. Sara denies other concerns or complaints. VSS and assessment WNL. Incision clean, dry and intact. Steri strips present , beginning to loosen. No drainage or redness for incision. Minimal to light vaginal discharge. Bilateral breasts full, firm with evidence of nipple damage. Bruce with VSS and assessment WNL. Weight down 10.6 % but currently up from PCP visit yesterday. Explained normal weight loss and gain for infant with parents both verbalized understanding. Relate baby has been eating 25-30 ml breast milk every 2 hours during the day and every 3 hours at night. Parents state baby has 3-4 wets and 3-4 brown/yellow stools daily. REviewed expected normal output for verbalized understanding. Diaper change while on scales. Urine in diaper noted to be darker and small amount. Discussed with parents need to increase volume for . Bruce to breast, more trouble on right breast with latch, interested with no latch. shown laid back nursing position, successful latch and feed for 15 min. Baby released latch, burped and returned to left side easily. Nursed for 18 mins. Of note: infant postures self with right head tilt, right ear to right shoulder, fussy when head to midline and will return to head tilt. Discussed chiropractor care for infant, both parents open and will discuss, info given. Sara mancera will be recieving electric pump today , will work on latching and will follow up as needed. Family home.
[2024-01-07 12:36] VITALS: BP 111/70; PULSE 79; TEMP 36.6; O2SAT 97
== END 2024-01-07 10:00 | disposition home or self-care (01) ==
LOC: FBCO 08:51
PROVIDERS: Visit Provider Midwife
DX: Z39.2 Encounter for routine postpartum follow-up (principal)